=== PATIENT | male | born 1960 | race Caucasian/White ===

== ENCOUNTER 2017-01-01 08:14 | Day surgery (SDC) | payer OTHER ==
[2016-12-30 10:15] VITALS: BMI 25.0
[~2017-01-01 08:14] MED LIST: LACTATED RINGERS 1,000 ML IV SCH; LIDOCAINE 1% 20 ML VIAL (10MG/ML) FOR IV START INTRADERMA PRN
[2017-01-01] MEDS ORDERED: PROPOFOL 10 MG/ML 20 ML VIAL IV ONE (10:32)
--- NOTE | 2017-01-01 11:25 | P.PCN ---
Date of Procedure: 01/01/17 Preoperative Diagnosis: Postoperative Diagnosis: Procedure(s) Performed: Procedure: Colonoscopy and biopsy. Preoperative diagnosis: Change in bowel habits and incontinence. Postoperative diagnosis: 1. Early flat polypoid area around the hepatic flexure biopsies. 2. Mild sigmoid diverticulosis. 3. Biopsies also obtained from the right side to rule out microscopic colitis. Preparation: HalfLytely prep. Sedation: Was provided by anesthesia. Brief clinical history: The patient is a 56-year-old male who was evaluated in the office back in September for change in bowel habits and incontinence. The patient lives in adult foster care and he toilets independently and the history was provided by the caregiver. This evaluation is to assess for neoplasia or other pathology. Procedure: With the patient on his left lateral decubitus position and after informed consent and adequate sedation, the perianal area was inspected and it did not show any fissures or fistulas. There were no masses felt on digital rectal examination. The Olympus CFQ 160L video colonoscope was then inserted in the rectum in the usual fashion and advanced to the cecum. The mucosa appeared healthy. There was mild sigmoid diverticulosis with no evidence of acute diverticulitis or strictures. Around the hepatic flexure, there was early flat small polypoid area which I biopsied. I also biopsied the right colon to rule out microscopic colitis. There were no large polyps or tumors. I retroflexed the endoscope in the rectum before the endoscope was withdrawn. The patient tolerated the procedure well. Plan: The patient was reassured. Will await biopsy results. Discussed dietary measures. I am recommending repeat exam in 3-5 years. He will follow up with you as planned. Implants: Indications for Procedure: Operative Findings: Description of Procedure:
[2017-01-01 11:42] VITALS: BP 117/74; PULSE 76; RESP 16
== END 2017-01-01 12:03 | disposition home or self-care (01) ==
LOC: ORWHC2ENDO 08:14
DX: D12.3 Benign neoplasm of transverse colon (principal); K57.30 Diverticulosis of large intestine without perforation or abscess without bleeding; I25.10 Atherosclerotic heart disease of native coronary artery without angina pectoris; I11.0 Hypertensive heart disease with heart failure; I50.9 Heart failure, unspecified; I25.2 Old myocardial infarction; J44.9 Chronic obstructive pulmonary disease, unspecified; Z86.718 Personal history of other venous thrombosis and embolism; E07.9 Disorder of thyroid, unspecified; K21.9 Gastro-esophageal reflux disease without esophagitis; G40.909 Epilepsy, unspecified, not intractable, without status epilepticus; Z79.82 Long term (current) use of aspirin; Z79.51 Long term (current) use of inhaled steroids; Z79.899 Other long term (current) drug therapy; Z88.1 Allergy status to other antibiotic agents; Z88.0 Allergy status to penicillin
CPT/HCPCS: 88305; 45380; J2704